=== PATIENT | female | born 1995 | race Caucasian/White ===

== ENCOUNTER → 2021-12-08 | Emergency (ER) | payer OTHER, SELFPAY ==
[~2021-12-08] VITALS: Ht 172.7 cm; Wt 54.5 kg
[2021-12-08 03:22] VITALS: BP 108/68
== END | disposition left against medical advice (07) ==
LOC: EDBD 03:03 → M ED 03:03
DX: Z53.21 Procedure and treatment not carried out due to patient leaving prior to being seen by health care provider (principal)